=== PATIENT | female | born 1965 | race Caucasian/White ===

== ENCOUNTER 2016-03-24 13:17 | Emergency (ER) | payer OTHER ==
[~2016-03-24] VITALS: Ht 157.5 cm; Wt 72.4 kg
[~2016-03-24 13:17] MED LIST: ALEVE220 M2 PO; AMITRIPTYLINE H10 MG; Elavil PO; FISH OIL SOFTG1 EACH PO; Fish Oil PO; KEFLEX500 MG PO; NORCO 5/3251 TABLET PO; OMEPRAZOLE20 MG PO; PERCOCET 5/31 TABLET PO; TOPIRAMATE100 MG PO; TRAVATAN Z5 ML BOTH EYES; Travatan 0.004% Opht BOTH EYES; ULTRAM50 MG PO; ZANTAC300 MG PO; ZOFRAN ODT4 MG PO; ZOFRAN4 MG PO; [UNRECOGNIZED DRUG - REMARK] PO
[2016-03-24 14:29] LABS: HEMATOCRIT 43.7 % (36.0-46.0); MCH 32.7 PG (29.0-34.0); MCHC 33.9 G/DL (30.0-36.0); MCV 96.7 FL (83-99); MEAN PLAT.VOLUME 9.8 uM^3 (9.5-12.4); PLATELET COUNT 192 K/uL (156-360); RBC DIS.WIDTH-CV 12.7 % (11.8-14.6); RBC DIS.WIDTH-SD 42.9 % (39-53); RED BLOOD COUNT 4.52 M/uL (3.80-5.20); WHITE BLOOD COUNT 5.4 K/uL (4.1-10.2)
[2016-03-24 14:37] LABS: CHLORIDE 111 mEq/L (99-109); SODIUM 143 mEq/L (136-147)
[2016-03-24 14:39] LABS: GLUCOSE 118 mg/dL (70-99)
[2016-03-24 14:40] LABS: ANION GAP 10 MEQ/L (2-14)
[2016-03-24 14:41] LABS: TOTAL BILIRUBIN 0.3 mg/dL (0.0-1.0)
[2016-03-24 14:43] LABS: ALKALINE PHOSPHATASE 109 IU/L (3-129); GFR ESTIMATE (CALCULATED) > 59 mL/min/
[2016-03-24 14:44] LABS: UREA NITROGEN (BUN) 20 mg/dL (9-23)
[2016-03-24 14:46] LABS: LIPASE 25 U/L (1.0-51.0)
[2016-03-24 14:52] LABS: QUANTITATIVE HCG < 4.0 MIU/ML
[2016-03-24 16:07] LABS: ADD MIUA? NO; BILIRUBIN NEGATIVE; BLOOD NEGATIVE; COLOR YELLOW ((YELLOW)); GLUCOSE (STRIP) NEGATIVE; KETONES NEGATIVE; LEUKOCYTES NEGATIVE; NITRITE NEGATIVE; PROTEIN (STRIP) NEGATIVE; SPECIFIC GRAVITY 1.026 (1.000-1.030); UCUL ADDED? NO; UROBILINOGEN 0.2 MG/DL (0.2-1.0)
[2016-03-24] MEDS ORDERED: ZOFRAN ODT4 MG PO (17:37)
[2016-03-24] MEDS ORDERED: BENTYL20 MG PO (17:37)
[2016-03-24 17:55] VITALS: BP 137/57
== END 2016-03-24 17:56 | disposition left against medical advice (07) ==
LOC: EME 13:17
DX: R10.84 Generalized abdominal pain (principal); R11.2 Nausea with vomiting, unspecified; R19.7 Diarrhea, unspecified; Z87.19 Personal history of other diseases of the digestive system; Z87.442 Personal history of urinary calculi; Z88.0 Allergy status to penicillin; Z88.6 Allergy status to analgesic agent
CPT/HCPCS: 74177; 80053; 81003; 83605; 83690; 84702; 85027; 99281; 99285; J1885; J2405; J7030

== ENCOUNTER 2016-07-28 03:26 | Emergency (ER) | payer OTHER ==
[~2016-07-28] VITALS: Ht 154.9 cm; Wt 74.3 kg
[~2016-07-28 03:26] MED LIST changes: +BENTYL20 MG PO
[2016-07-28 03:50] LABS: MCH 33.4 PG (29.0-34.0); MCHC 34.2 G/DL (30.0-36.0); MCV 97.7 FL (83-99); MEAN PLAT.VOLUME 9.8 uM^3 (9.5-12.4); PLATELET COUNT 191 K/uL (156-360); RBC DIS.WIDTH-CV 12.8 % (11.8-14.6); RBC DIS.WIDTH-SD 45.5 % (39-53); WHITE BLOOD COUNT 8.6 K/uL (4.1-10.2)
[2016-07-28 03:58] LABS: CHLORIDE 105 mEq/L (99-109); POTASSIUM 4.2 mEq/L (3.7-5.4); SODIUM 139 mEq/L (136-147)
[2016-07-28 04:01] LABS: GLUCOSE 129 mg/dL (70-99)
[2016-07-28 04:02] LABS: ANION GAP 9 MEQ/L (2-14)
[2016-07-28 04:03] LABS: TOTAL BILIRUBIN 0.4 mg/dL (0.0-1.0)
[2016-07-28 04:04] LABS: ALKALINE PHOSPHATASE 127 IU/L (3-129); GFR ESTIMATE (CALCULATED) > 59 mL/min/
[2016-07-28 04:05] LABS: UREA NITROGEN (BUN) 23 mg/dL (9-23)
[2016-07-28 04:07] LABS: ADD MIUA? YES; BILIRUBIN NEGATIVE; BLOOD MODERATE; COLOR YELLOW ((YELLOW)); GLUCOSE (STRIP) NEGATIVE; KETONES NEGATIVE; LEUKOCYTES NEGATIVE; NITRITE NEGATIVE; PROTEIN (STRIP) NEGATIVE; SPECIFIC GRAVITY 1.013 (1.000-1.030); UROBILINOGEN 0.2 MG/DL (0.2-1.0)
[2016-07-28 04:08] LABS: LIPASE 25 U/L (1.0-51.0)
[2016-07-28 04:10] LABS: BACTERIA RARE /HPF; EPITHELIAL CELLS 1+ /HPF; MUCUS TRACE /LPF; RED BLOOD CELLS 30-40 /HPF (0-5); UCUL ADDED? NO; WHITE BLOOD CELLS 0-5 /HPF (0-5)
[2016-07-28] MEDS ORDERED: FLOMAX0.4 MG PO (04:44)
[2016-07-28] MEDS ORDERED: ZOFRAN8 MG PO (04:44)
[2016-07-28] MEDS ORDERED: NORCO 5/3251 TABLET PO (04:44)
[2016-07-28 04:59] VITALS: BP 158/98
== END 2016-07-28 05:03 | disposition home or self-care (01) ==
LOC: EME 03:26
PROVIDERS: Emergency Medicine
DX: N20.1 Calculus of ureter (principal); N20.0 Calculus of kidney; R31.9 Hematuria, unspecified; Z87.442 Personal history of urinary calculi
CPT/HCPCS: 74176; 80053; 81003; 83690; 85027; 99281; 99284; J2270; J2405; J7030

== ENCOUNTER 2016-08-11 06:50 | Emergency (ER) | payer OTHER ==
[~2016-08-11] VITALS: Ht 154.9 cm; Wt 74.1 kg
[~2016-08-11 06:50] MED LIST changes: +FLOMAX0.4 MG PO; +ZOFRAN8 MG PO
[2016-08-11 07:32] LABS: HEMATOCRIT 38.6 % (36.0-46.0); MCHC 33.4 G/DL (30.0-36.0); MCV 98.7 FL (83-99); MEAN PLAT.VOLUME 9.8 uM^3 (9.5-12.4); PLATELET COUNT 183 K/uL (156-360); RBC DIS.WIDTH-CV 12.8 % (11.8-14.6); RBC DIS.WIDTH-SD 46.3 % (39-53); RED BLOOD COUNT 3.91 M/uL (3.80-5.20); WHITE BLOOD COUNT 3.6 K/uL (4.1-10.2)
[2016-08-11 07:52] LABS: TROP-I INTERPRETATION NEGATIVE; TROPONIN-I < 0.01 ng/mL (0.0-0.30)
[2016-08-11 08:02] LABS: ANION GAP 9 MEQ/L (2-14); CHLORIDE 111 MEQ/L (99-109); POTASSIUM 3.9 MEQ/L (3.7-5.4); SAMPLE HEMOLYSIS CHECK 0; SAMPLE ICTERIC CHECK 0; SAMPLE LIPEMIA CHECK 0; SODIUM 143 MEQ/L (136-147)
[2016-08-11 08:08] LABS: GFR ESTIMATE (CALCULATED) > 59 mL/min/; GLUCOSE 98 mg/dL (70-99); UREA NITROGEN (BUN) 21 mg/dL (9-23)
[2016-08-11 09:19] VITALS: BP 146/74
== END 2016-08-11 09:20 | disposition home or self-care (01) ==
LOC: EME 06:50
PROVIDERS: Emergency Medicine
DX: S09.90XA Unspecified injury of head, initial encounter (principal); S00.01XA Abrasion of scalp, initial encounter; W01.10XA Fall on same level from slipping, tripping and stumbling with subsequent striking against unspecified object, initial encounter; Y93.E2 Activity, laundry; Z88.6 Allergy status to analgesic agent; Z87.442 Personal history of urinary calculi; Z88.0 Allergy status to penicillin
CPT/HCPCS: 70450; 70486; 72125; 80048; 84484; 85027; 93005; 99281; 99285

== ENCOUNTER 2016-09-08 12:22 | Emergency (ER) | payer OTHER | END 2016-09-08 12:59 | disposition left against medical advice (07) | LOC: EME 12:22 | DX: R21 Rash and other nonspecific skin eruption (principal); Z53.21 Procedure and treatment not carried out due to patient leaving prior to being seen by health care provider ==

== ENCOUNTER 2017-02-09 05:12 | Emergency (ER) | payer OTHER ==
[~2017-02-09] VITALS: Ht 157.5 cm; Wt 75.3 kg
[2017-02-09 05:46] LABS: HEMATOCRIT 42.1 % (36.0-46.0); MCHC 33.5 G/DL (30.0-36.0); MCV 98.6 FL (83-99); MEAN PLAT.VOLUME 9.7 uM^3 (9.5-12.4); PLATELET COUNT 185 K/uL (156-360); RBC DIS.WIDTH-CV 12.7 % (11.8-14.6); RBC DIS.WIDTH-SD 45.8 % (39-53); RED BLOOD COUNT 4.27 M/uL (3.80-5.20); WHITE BLOOD COUNT 7.5 K/uL (4.1-10.2)
[2017-02-09 05:57] LABS: CHLORIDE 109 mEq/L (99-109); POTASSIUM 3.9 mEq/L (3.7-5.4); SODIUM 142 mEq/L (136-147)
[2017-02-09 05:59] LABS: GLUCOSE 113 mg/dL (70-99)
[2017-02-09 06:00] LABS: ANION GAP 11 MEQ/L (2-14)
[2017-02-09 06:01] LABS: TOTAL BILIRUBIN 0.5 mg/dL (0.0-1.0)
[2017-02-09 06:02] LABS: ALKALINE PHOSPHATASE 159 IU/L (3-129)
[2017-02-09 06:03] LABS: GFR ESTIMATE (CALCULATED) > 59 mL/min/
[2017-02-09 06:04] LABS: UREA NITROGEN (BUN) 16 mg/dL (9-23)
[2017-02-09 06:06] LABS: LIPASE 25 U/L (1.0-51.0)
[2017-02-09] MEDS ORDERED: ZITHROMAX Z-PA250 MG PO (06:41)
[2017-02-09 07:03] VITALS: BP 145/86
== END 2017-02-09 07:33 | disposition home or self-care (01) ==
LOC: EME 05:12
PROVIDERS: Emergency Medicine
DX: R11.10 Vomiting, unspecified (principal); R19.7 Diarrhea, unspecified; H66.92 Otitis media, unspecified, left ear; Z90.710 Acquired absence of both cervix and uterus; Z88.0 Allergy status to penicillin; Z88.6 Allergy status to analgesic agent; Z88.8 Allergy status to other drugs, medicaments and biological substances
CPT/HCPCS: 71020; 80048; 80053; 83690; 85027; 87502; 87651 90